=== PATIENT | female | born 1965 | race Caucasian/White ===

== ENCOUNTER 2016-07-12 16:54 | Emergency (ER) | payer MEDICAID ==
[~2016-07-12] VITALS: Ht 172.7 cm; Wt 99.8 kg
[2016-07-12 18:16] LABS: Basophils # (auto) 0 uL; Basophils % (auto) 0.4 % (0.0-2.0); Eosinophils # (auto) 0.4 uL; Eosinophils % (auto) 3.8 % (0.0-7.0); Hematocrit 41.4 % (36.0-46.0); Hemoglobin 13.9 g/dL (12.2-16.2); Lymphocytes # (auto) 2.3 uL; Lymphocytes % (auto) 24.3 % (10.0-50.0); Mean Corpuscular Hemoglobin 29.4 pg (28.0-32.0); Mean Corpuscular Hgb Conc. 33.7 g/dL (32.0-36.0); Mean Corpuscular Volume 87.4 fL (80.0-100.0); Mean Platelet Volume 8.3 fL (7.4-10.4); Monocytes # (auto) 0.8 uL; Monocytes % (auto) 8.1 % (0.0-12.0); Neutrophils # (auto) 5.9 uL; Neutrophils % (auto) 63.4 % (37.0-80.0); Platelet Count (auto) 309 10^3/uL (140-450); Red Cell Distribution Width 14.2 % (11.6-16.0); White Blood Cell 9.3 10^3/uL (4.4-10.8)
[2016-07-12 18:38] VITALS: BP 116/74
[2016-07-12 18:39] LABS: Albumin 3.5 g/dL (3.4-5.0); Anion Gap 8 (5-15); Aspartate Aminotransferase 9 U/L (15-37); BUN/Creatinine Ratio 9.9; Blood Urea Nitrogen 9 mg/dL (7-18); Calcium 8.4 mg/dL (8.5-10.1); Carbon Dioxide 26 mmol/L (21-32); Chloride 109 mmol/L (98-107); GFR African American 84 mL/min; GFR Non-African American 69 mL/min; Glucose 147 mg/dL (74-106); Magnesium 2.3 mg/dL (1.6-2.6); Potassium 3.7 mmol/L (3.5-5.1); Sodium 143 mmol/L (136-145)
[2016-07-12 18:44] LABS: Alkaline Phosphatase 79 U/L (45-117); Bilirubin, Total 0.2 mg/dL (0.2-1.0)
== END 2016-07-12 19:55 | disposition left against medical advice (07) ==
LOC: ER 16:56
DX: S16.1XXA Strain of muscle, fascia and tendon at neck level, initial encounter (principal); I10 Essential (primary) hypertension; J45.909 Unspecified asthma, uncomplicated; M54.2 Cervicalgia; R07.2 Precordial pain; X58.XXXA Exposure to other specified factors, initial encounter; Y99.8 Other external cause status; Y93.89 Activity, other specified; Y92.89 Other specified places as the place of occurrence of the external cause
CPT/HCPCS: 36415; 80053; 83735; 84484; 85025; 93005

== ENCOUNTER 2017-02-24 20:29 | Emergency (ER) | payer MEDICAID ==
[~2017-02-24] VITALS: Ht 170.2 cm; Wt 90.7 kg
[2017-02-24 21:03] LABS: Urine Bilirubin Negative (Negative); Urine Blood Negative /uL (Negative); Urine Color Yellow (Yellow); Urine Glucose Normal (Normal); Urine Ketone Negative (Negative); Urine Mucus FEW (None Seen); Urine Nitrite Negative (Negative); Urine RBC <1 /hpf (0 - 4); Urine Squamous Epithelial Cell FEW /hpf (<5); Urine Urobilinogen Normal (Negative); Urine pH 5.5 (5.0-8.0)
[2017-02-24 22:34] LABS: Albumin 3.5 g/dL (3.4-5.0); Alkaline Phosphatase 78 U/L (45-117); Anion Gap 6 (5-15); Aspartate Aminotransferase 12 U/L (15-37); BUN/Creatinine Ratio 10.6; Bilirubin, Total 0.2 mg/dL (0.2-1.0); Blood Urea Nitrogen 10 mg/dL (7-18); Calcium 8.5 mg/dL (8.5-10.1); Carbon Dioxide 28 mmol/L (21-32); Chloride 107 mmol/L (98-107); GFR African American 81 mL/min; GFR Non-African American 67 mL/min; Glucose 97 mg/dL (74-106); Magnesium 2.2 mg/dL (1.6-2.6); Potassium 3.8 mmol/L (3.5-5.1); Sodium 141 mmol/L (136-145)
[2017-02-24 22:56] VITALS: BP 135/76
[2017-02-24 23:02] LABS: Basophils # (auto) 0.1 uL; Basophils % (auto) 0.8 % (0.0-2.0); Eosinophils # (auto) 0.5 uL; Eosinophils % (auto) 6.4 % (0.0-7.0); Hematocrit 40.4 % (36.0-46.0); Hemoglobin 13.9 g/dL (12.2-16.2); Lymphocytes # (auto) 2.7 uL; Lymphocytes % (auto) 35.1 % (10.0-50.0); Mean Corpuscular Hemoglobin 30.9 pg (28.0-32.0); Mean Corpuscular Hgb Conc. 34.3 g/dL (32.0-36.0); Mean Corpuscular Volume 90.1 fL (80.0-100.0); Mean Platelet Volume 8.5 fL (6.9-10.8); Monocytes # (auto) 0.6 uL; Monocytes % (auto) 8.1 % (0.0-12.0); Neutrophils # (auto) 3.9 uL; Neutrophils % (auto) 49.6 % (37.0-80.0); Platelet Count (auto) 271 10^3/uL (140-450); Red Cell Distribution Width 14.4 % (11.8-14.3); White Blood Cell 7.8 10^3/uL (4.4-10.8)
== END 2017-02-24 23:48 | disposition home or self-care (01) ==
LOC: ER 20:30
DX: R07.89 Other chest pain (principal); I10 Essential (primary) hypertension; J45.909 Unspecified asthma, uncomplicated
CPT/HCPCS: 36415; 71010; 80053; 81001; 81025; 83735; 84484; 85025; 93005

== ENCOUNTER 2018-09-12 21:57 | Emergency (ER) | payer MEDICAID ==
[~2018-09-12] VITALS: Ht 170.2 cm; Wt 104.3 kg
[2018-09-13 00:51] LABS: Basophils # (auto) 0.1 uL; Basophils % (auto) 0.8 % (0.0-2.0); Eosinophils # (auto) 0.5 uL; Eosinophils % (auto) 5.9 % (0.0-7.0); Hematocrit 40.5 % (36.0-46.0); Hemoglobin 13.9 g/dL (12.2-16.2); Lymphocytes % (auto) 38.6 % (10.0-50.0); Mean Corpuscular Hemoglobin 30.6 pg (28.0-32.0); Mean Corpuscular Hgb Conc. 34.4 g/dL (32.0-36.0); Mean Corpuscular Volume 88.8 fL (80.0-100.0); Monocytes # (auto) 0.6 uL; Monocytes % (auto) 8.2 % (0.0-12.0); Neutrophils # (auto) 3.7 uL; Neutrophils % (auto) 46.5 % (37.0-80.0); Nucleated Red Blood Cells % 0.1 %; Platelet Count (auto) 253 10^3/uL (140-450); Red Blood Cells 4.56 10^6/uL (4.0-5.20); Red Cell Distribution Width 14.1 % (11.8-14.3); White Blood Cell 7.9 10^3/uL (4.4-10.8)
[2018-09-13 00:54] LABS: Urine Pregnacy Test Negative (Negative)
[2018-09-13 01:00] LABS: Urine Bacteria NONE SEEN /hpf (None Seen); Urine Blood Negative /uL (Negative); Urine Mucus FEW (None Seen); Urine Specific Gravity 1.028 (1.001-1.035); Urine WBC 2 /hpf (0 - 5)
[2018-09-13 01:05] LABS: Chloride 110 mmol/L (98-107); Potassium 3.9 mmol/L (3.5-5.1); Sodium 141 mmol/L (136-145)
[2018-09-13 01:08] LABS: Albumin 3.4 g/dL (3.4-5.0); Anion Gap 6 (5-15); Blood Urea Nitrogen 12 mg/dL (7-18); Calcium 8.6 mg/dL (8.5-10.1); Carbon Dioxide 25 mmol/L (21-32); Glucose 90 mg/dL (74-106)
[2018-09-13 01:10] LABS: Alcohol, Urine < 3.0 mg/dL (0-5); Amphetamine Screen, Urine NEGATIVE (NEGATIVE); Barbiturate Scree,Urine NEGATIVE (NEGATIVE); Benzodiazephine Screen, Urine NEGATIVE (NEGATIVE); Cannabinoid Screen, Urine NEGATIVE (NEGATIVE); Cocaine Screen, Urine NEGATIVE (NEGATIVE); Opiate Scree,Urine NEGATIVE (NEGATIVE); Phencyclidine Screen, Urine NEGATIVE (NEGATIVE)
[2018-09-13 01:11] LABS: Alanine Aminotransferase 23 U/L (13-56); Aspartate Aminotransferase 15 U/L (15-37); BUN/Creatinine Ratio 13.8; GFR African American 88 mL/min; GFR Non-African American 72 mL/min
[2018-09-13 01:14] LABS: Alkaline Phosphatase 82 U/L (45-117); Bilirubin, Total 0.3 mg/dL (0.2-1.0); Total Protein 6.7 g/dL (6.4-8.2)
[2018-09-13 02:07] LABS: CRP High Sensitivity 0.41 mg/dL (< 0.3)
[2018-09-13] MEDS ORDERED: KETOROLAC TROMETH 60MG/2ML VIAL IM ONE (02:15)
[2018-09-13 02:16] VITALS: BP 157/81
[2018-09-13] MEDS ORDERED: IBUPROFEN 800 MG TAB PO ONE (02:45)
== END 2018-09-13 04:04 | disposition home or self-care (01) ==
LOC: ER 22:03
DX: M25.60 Stiffness of unspecified joint, not elsewhere classified (principal); M54.2 Cervicalgia; M47.892 Other spondylosis, cervical region; M79.604 Pain in right leg; M79.605 Pain in left leg; M79.641 Pain in right hand; M79.642 Pain in left hand; J45.909 Unspecified asthma, uncomplicated; I10 Essential (primary) hypertension
CPT/HCPCS: 36415; 71046; 80053; 80307; 81001; 81025; 82550; 83036; 83605; 83880; 84443; 84484; 84702; 85025; 85652; 86141; 93005; 99284; J1885

== ENCOUNTER 2018-10-15 02:31 | Emergency (ER) | payer MEDICAID ==
[~2018-10-15] VITALS: Ht 172.7 cm; Wt 90.7 kg
[2018-10-15 02:35] VITALS: BP 138/91
[2018-10-15] MEDS ORDERED: IPRATROPIUM BROM 0.5 MG/2.5ML INH SOL NEB ONE (03:00)
[2018-10-15] MEDS ORDERED: ALBUTEROL SULF 2.5 MG/0.5ML(0.5%) NEB SOLN NEB ONE (03:00)
[2018-10-15] MEDS ORDERED: cefTRIAXone SOD 1,000 MG VL IM ONE (06:45)
[2018-10-15] MEDS ORDERED: methylPREDNISolone SOD SUCC 125 MG/2 ML VL IM ONE (06:45)
== END 2018-10-15 07:33 | disposition left against medical advice (07) ==
LOC: ER 02:38
DX: J45.909 Unspecified asthma, uncomplicated (principal); J02.9 Acute pharyngitis, unspecified; I10 Essential (primary) hypertension; Z53.29 Procedure and treatment not carried out because of patient's decision for other reasons
CPT/HCPCS: 71046; 94640; 99283; J0696; J2930; J7611; J7644

== ENCOUNTER 2019-03-10 17:01 | Emergency (ER) | payer MEDICAID ==
[~2019-03-10] VITALS: Ht 170.2 cm; Wt 95.3 kg
[2019-03-10] MEDS ORDERED: cloNIDine HCL 0.1 MG TAB ONE (17:18)
[2019-03-10] MEDS ORDERED: cloNIDine HCL 0.1 MG TAB PO ONE (17:30)
[2019-03-10 18:01] VITALS: BP 158/74
[2019-03-10 18:03] LABS: Basophils # (auto) 0.1 uL; Basophils % (auto) 0.8 % (0.0-2.0); Eosinophils # (auto) 0.4 uL; Eosinophils % (auto) 4.1 % (0.0-7.0); Hematocrit 44.4 % (36.0-46.0); Hemoglobin 15.3 g/dL (12.2-16.2); Lymphocytes % (auto) 22.8 % (10.0-50.0); Mean Corpuscular Hemoglobin 30.5 pg (28.0-32.0); Mean Corpuscular Hgb Conc. 34.4 g/dL (32.0-36.0); Mean Corpuscular Volume 88.6 fL (80.0-100.0); Monocytes # (auto) 0.5 uL; Monocytes % (auto) 5.6 % (0.0-12.0); Neutrophils # (auto) 5.9 uL; Neutrophils % (auto) 66.7 % (37.0-80.0); Nucleated Red Blood Cells % 0.1 %; Platelet Count (auto) 284 10^3/uL (140-450); Red Blood Cells 5.01 10^6/uL (4.0-5.20); Red Cell Distribution Width 13.7 % (11.8-14.3); White Blood Cell 8.9 10^3/uL (4.4-10.8)
[2019-03-10 18:10] LABS: Albumin 3.9 g/dL (3.4-5.0); Anion Gap 6 (5-15); Blood Urea Nitrogen 6 mg/dL (7-18); Calcium 9.2 mg/dL (8.5-10.1); Carbon Dioxide 27 mmol/L (21-32); Chloride 108 mmol/L (98-107); Glucose 104 mg/dL (74-106); Potassium 3.9 mmol/L (3.5-5.1); Sodium 141 mmol/L (136-145)
[2019-03-10 18:11] LABS: Alanine Aminotransferase 29 U/L (13-56); Aspartate Aminotransferase 20 U/L (15-37); BUN/Creatinine Ratio 6.7; GFR African American 84 mL/min; GFR Non-African American 70 mL/min
[2019-03-10 18:17] LABS: Alkaline Phosphatase 91 U/L (45-117); Bilirubin, Total 0.4 mg/dL (0.2-1.0); Total Protein 7.3 g/dL (6.4-8.2)
== END 2019-03-10 18:57 | disposition home or self-care (01) ==
LOC: ER 17:01
DX: I16.0 Hypertensive urgency (principal); J45.909 Unspecified asthma, uncomplicated
CPT/HCPCS: 36415; 71045; 80053; 84484; 85025; 93005

== ENCOUNTER 2019-09-28 17:50 | Emergency (ER) | payer MEDICAID ==
[~2019-09-28] VITALS: Ht 172.7 cm; Wt 104.3 kg
[2019-09-28] MEDS ORDERED: cloNIDine HCL 0.1 MG TAB PO ONE (18:30)
[2019-09-28] MEDS ORDERED: ONDANSETRON HCL 4 MG/2 ML VIAL IV ONE (19:00)
[2019-09-28] MEDS ORDERED: MORPHINE SULF INJ 2 MG/ML SYRINGE 1ML IV ONE (19:00)
[2019-09-28 19:01] LABS: Basophils # (auto) 0.1 10 ^3/uL (0-0.2); Basophils % (auto) 1.3 % (0.0-2.0); Eosinophils # (auto) 0.3 10 ^3/uL (0-0.8); Eosinophils % (auto) 3.7 % (0.0-7.0); Hematocrit 44.4 % (36.0-46.0); Lymphocytes # (auto) 2.2 10 ^3/uL (0.4-5.4); Lymphocytes % (auto) 25.4 % (10.0-50.0); Mean Corpuscular Hemoglobin 30.3 pg (28.0-32.0); Mean Corpuscular Hgb Conc. 33.9 g/dL (32.0-36.0); Mean Corpuscular Volume 89.3 fL (80.0-100.0); Monocytes # (auto) 0.8 10 ^3/uL (0-1.3); Monocytes % (auto) 8.8 % (0.0-12.0); Neutrophils # (auto) 5.3 10 ^3/uL (1.6-8.6); Neutrophils % (auto) 60.8 % (37.0-80.0); Platelet Count (auto) 258 10^3/uL (140-450); Red Blood Cells 4.97 10^6/uL (4.0-5.20); Red Cell Distribution Width 14.2 % (11.8-14.3); White Blood Cell 8.8 10^3/uL (4.4-10.8)
[2019-09-28 19:16] LABS: INR 0.95 (0.9-1.15); Partial Thromboplastin Time 28.2 sec (23.64-32.05)
[2019-09-28 19:18] LABS: Albumin 3.6 g/dL (3.4-5.0); Anion Gap 6 (5-15); BUN/Creatinine Ratio 13.3; Blood Urea Nitrogen 11 mg/dL (7-18); Calcium 8.9 mg/dL (8.5-10.1); Carbon Dioxide 29 mmol/L (21-32); Chloride 106 mmol/L (98-107); GFR African American 92 mL/min; GFR Non-African American 76 mL/min; Glucose 107 mg/dL (74-106); Magnesium 2.3 mg/dL (1.6-2.6); Potassium 4.2 mmol/L (3.5-5.1); Sodium 141 mmol/L (136-145)
[2019-09-28 19:23] LABS: Alanine Aminotransferase 26 U/L (13-56); Alkaline Phosphatase 72 U/L (45-117); Aspartate Aminotransferase 14 U/L (15-37); Bilirubin, Total 0.3 mg/dL (0.2-1.0); Total Protein 7.2 g/dL (6.4-8.2)
[2019-09-28] MEDS ORDERED: ACETAMINOPHEN/CODEINE#3 (300/30mg) TAB PO ONE (19:30)
[2019-09-28 20:44] VITALS: BP 128/64
== END 2019-09-28 21:27 | disposition home or self-care (01) ==
LOC: ER 17:50
DX: S16.1XXA Strain of muscle, fascia and tendon at neck level, initial encounter (principal); I16.0 Hypertensive urgency; J45.909 Unspecified asthma, uncomplicated; I10 Essential (primary) hypertension; X58.XXXA Exposure to other specified factors, initial encounter; Y93.89 Activity, other specified; Y92.89 Other specified places as the place of occurrence of the external cause; Y99.8 Other external cause status
CPT/HCPCS: 36415; 70450; 80053; 83735; 83880; 84443; 84484; 85025; 85379; 85610; 85730; 93005

== ENCOUNTER 2023-04-28 21:40 | Emergency (ER) | payer MEDICAID ==
[~2023-04-28] VITALS: Ht 172.7 cm; Wt 109.0 kg
[~2023-04-28 21:40] MED LIST: ACE3T PO; AMOX875T4 PO; DICL50TA2 PO
[2023-04-28 22:26] VITALS: BP 163/95; PULSE 63; RESP 16; O2SAT 96
[2023-04-28] MEDS ORDERED: cloNIDine HCL 0.1 MG TAB PO ONE (22:45)
== END 2023-04-29 03:12 | disposition left against medical advice (07) ==
LOC: ER 21:40
DX: R51.9 Headache, unspecified (principal); I10 Essential (primary) hypertension; Z53.21 Procedure and treatment not carried out due to patient leaving prior to being seen by health care provider